=== PATIENT | male | born 2000 | race Caucasian/White ===

== ENCOUNTER 2025-03-18 19:04 | Emergency (ER) | payer SELFPAY ==
[2025-03-18 19:14] VITALS: BP 155/82; PULSE 94; RESP 14; TEMP 36.7; O2SAT 99
--- NOTE | 2025-03-18 19:28 | ED.EAR ---
HPI - Ear Problem General Chief complaint: Ear Stated complaint: Left Ear Pain Time Seen by Provider: 03/18/25 19:19 Source: patient and RN notes reviewed Mode of arrival: ambulatory Limitations: no limitations History of Present Illness HPI Narrative: Patient presents today complaining of a 4 to five-day history of left ear pain and slight muffling. He also reports the canal is swollen. Denies any swimming or use of ear plugs recently. Currently rates his pain 7/10 and has taken a dose of ibuprofen with mild short-term relief. Denies any additional sick symptoms. Related Data Allergies Allergy/AdvReac Type Severity Reaction Status Date / Time No Known Allergies Allergy Verified 03/18/25 19:15 Review of Systems Review of Systems: CONSTITUTIONAL: Denies body aches, fever, chills, or sweats. EYES: Denies visual changes, redness, or discharge. ENT: Denies rhinorrhea, congestion, sore throat. + left ear pain, muffling, canal swelling CARDIOVASCULAR: Denies chest pain, palpitations, or edema. RESPIRATORY: Denies cough or dyspnea. GASTROINTESTINAL: Denies abdominal pain, nausea, vomiting, or diarrhea. GENITOURINARY: Denies dysuria or hematuria. SKIN: Denies rash, itching, or wounds. MUSCULOSKELETAL: Denies back pain, joint pain, or myalgia. NEUROLOGIC: Denies headache, numbness, tingling, or weakness. PSYCH: Denies depression or anxiety. PMFSH Comments At time of signature, I have reviewed and agree with nursing past medical, surgical, social and family history unless otherwise noted. Please see nursing chart for further information. There is no relevant family history pertinent to the presenting complaint Exam Narrative: GENERAL: Well-appearing, well-nourished, and in no acute distress. HEAD: Normocephalic, atraumatic. EYES: EOMI. No redness or drainage. Conjunctivae normal. ENT: Mucous membranes pink and moist. Right TM and canal normal. Left TM is occluded by moderately swollen and erythematous canal. Canal has white purulent material within the is moist. Movement and tragal tenderness present. NECK: Normal AROM. CHEST: No respiratory distress. EXTREMITIES: Normal range of motion. No edema. SKIN: Warm, dry, no rash. Capillary refill normal. Normal skin turgor. NEURO: No focal deficits. Alert and oriented x3. Gait steady. PSYCH: Normal affect. No signs of depression or anxiety. Course Course Level of Care: Express Care Visit Vital Signs Vital signs: Vital Signs Temperature 98.1 F 03/18/25 19:14 Pulse Rate 94 03/18/25 19:14 Respiratory Rate 14 03/18/25 19:14 Blood Pressure 155/82 H 03/18/25 19:14 Pulse Oximetry 99 03/18/25 19:14 Oxygen Delivery Room Air 03/18/25 19:14 Temperature 98.1 F 03/18/25 19:14 Pulse Rate 94 03/18/25 19:14 Respiratory Rate 14 03/18/25 19:14 Blood Pressure 155/82 H 03/18/25 19:14 Pulse Oximetry 99 03/18/25 19:14 Oxygen Delivery Room Air 03/18/25 19:14 Reviewed Medical Decision Making MDM Narrative Medical decision making narrative: Patient will be treated with Ciprodex for left otitis externa. Anticipatory guidance given. Differential Diagnosis Differential Diagnosis: Otitis media, otitis externa, ruptured TM, serous otitis left cerumen impaction Vital Signs Vital Signs: Vital Signs Temperature 98.1 F 03/18/25 19:14 Pulse Rate 94 03/18/25 19:14 Respiratory Rate 14 03/18/25 19:14 Blood Pressure 155/82 H 03/18/25 19:14 Pulse Oximetry 99 03/18/25 19:14 Oxygen Delivery Room Air 03/18/25 19:14 Temperature 98.1 F 03/18/25 19:14 Pulse Rate 94 03/18/25 19:14 Respiratory Rate 14 03/18/25 19:14 Blood Pressure 155/82 H 03/18/25 19:14 Pulse Oximetry 99 03/18/25 19:14 Oxygen Delivery Room Air 03/18/25 19:14 Critical Care Time Critical Care Time Critical Care Time: No Discharge Plan Discharge Clinical Impression: Left otitis externa Qualifiers: Otitis externa type: unspecified type Chronicity: acute Qualified Code(s): H60.502 - Unspecified acute noninfective otitis externa, left ear Patient Disposition: Home Condition: Stable Instructions: Swimmer's Ear (ED) Additional Instructions: Please start the ear drops tonight and use as directed. Keep your ear dry as possible. Take Tylenol or ibuprofen for pain if needed. Follow-up with your PCP next week if symptoms are not improving. Go to the ER immediately if symptoms worsen. Your blood pressure was elevated above 120/80 today at Urgent Care. This puts you above the threshold for follow up. Please schedule a followup visit with your personal physician as soon as possible, for further evaluation and treatment. Even blood pressure exceeding 120/80 may indicate pre-hypertension. Patient Language: Lao Prescriptions: New ciprofloxacin-dexamethasone 0.3-0.1 % drops,suspension 4 drp LEFT EAR Q12H 7 Days Qty: 7.5 0RF Follow-up/Referrals: PHYSICIAN,CERTIFIED FAMILY MEDIATOR [Primary Care Provider] - Time of Disposition: 19:28
== END 2025-03-18 19:33 | disposition home or self-care (01) ==
PROVIDERS: Emergency Provider Nurse Practitioner
DX: H60.502 Unspecified acute noninfective otitis externa, left ear (principal)
CPT/HCPCS: 99203; G0463